=== PATIENT | female | born 1965 | race Caucasian/White ===

== ENCOUNTER → 2016-06-18 | Outpatient (CLI) | payer OTHER ==
--- OUTSIDE RECORDS SUMMARY | 2016-06-18 13:17 | XMS REPORT | Continuity of Care Document ---
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
--- NOTE | 2016-06-18 13:49 | Diagnostic Imaging Report ---
Bilateral breast diagnostic mammogram. CAD is utilized INDICATION: Patient has severe left breast pain. FINDINGS: The breasts are composed of heterogeneously dense parenchyma with less dense breast tissue in the periphery of each breast. There is a subcentimeter central asymmetry seen in the left CC projection which appears to be less prominent on the exaggerated lateral view in favor of summation artifact of parenchyma. The right breast demonstrates no definite focal lesion. No suspicious calcification seen. Benign-appearing calcifications are seen in the inferior aspect of the left breast. IMPRESSION: Central left CC projection asymmetry, likely summation artifact of parenchyma. Ultrasound evaluation pending. ACR BI-RADS Category 0: Incomplete. (Needs additional imaging evaluation). Result letter will be mailed to the patient. Note: At least 10% of breast cancer is not imaged by mammography. Dictated by: Dictated on workstation # [id number]
--- NOTE | 2016-06-18 18:36 | Diagnostic Imaging Report ---
Left breast ultrasound. INDICATION: Left breast pain. FINDINGS: Unremarkable breast parenchyma is seen with no focal lesion identified in the four quadrants or retroareolar region. IMPRESSION: Negative study. Clinical correlation for the painful area is recommended. Six-month follow-up mammogram to reevaluate left CC projection asymmetry, likely related to summation artifact of parenchyma. ACR BI-RADS Category 1: Negative. Dictated by: Dictated on workstation # [id number]
== END ==
LOC: RAD 13:12
PROVIDERS: ATTEND Nurse Practitioner Family
DX: N64.4 Mastodynia (principal)
CPT/HCPCS: 76641; 77066